=== PATIENT | female | born 1990 | race Caucasian/White ===

== ENCOUNTER 2020-10-16 07:47 | Emergency (ER) | payer SELFPAY ==
[2020-10-16 08:35] LABS: RED BLOOD COUNT 4.78 M/UL (4.00-5.10); WHITE BLOOD COUNT 11.1 K/UL (4.5-11.0)
[2020-10-16 08:55] LABS: BUN/CREATININE RATIO 12 (0-10)
[2020-10-16] MEDS ORDERED: ZOFRAN ODT 4 MG4 MG PO (09:33)
== END 2020-10-16 14:43 | disposition home or self-care (01) ==
LOC: ER1 07:47
PROVIDERS: Emergency Medicine
DX: R10.9 Unspecified abdominal pain (principal)
CPT/HCPCS: 71045; 80053; 80307; 81001; 83605; 83690; 84703; 85025; 99284; J7030